=== PATIENT | male | born 1995 | race Caucasian/White ===

== ENCOUNTER 2020-06-10 23:40 | Emergency (ER) | payer SELFPAY ==
[~2020-06-10] VITALS: Ht 170.2 cm; Wt 64.0 kg
[2020-06-11] MEDS ORDERED: FLUORESCEIN SODIUM 1MG/STRIP RIGHTEYE ONE (00:45)
[2020-06-11] MEDS ORDERED: TETRACAINE 0.5% OPHTH DROPS 4ML RIGHTEYE ONE (00:45)
[2020-06-11] MEDS ORDERED: ERYT1OIN6 RIGHTEYE (01:05)
[2020-06-11 01:39] VITALS: BP 108/62
== END 2020-06-11 01:40 | disposition home or self-care (01) ==
LOC: ER 23:40
DX: T15.01XA Foreign body in cornea, right eye, initial encounter (principal); X58.XXXA Exposure to other specified factors, initial encounter; Y93.89 Activity, other specified; Y92.89 Other specified places as the place of occurrence of the external cause; Y99.8 Other external cause status
CPT/HCPCS: 99283

== ENCOUNTER 2020-11-18 16:38 | Emergency (ER) | payer SELFPAY ==
[~2020-11-18] VITALS: Ht 167.6 cm; Wt 63.0 kg
[~2020-11-18 16:38] MED LIST: ERYT1OIN6 RIGHTEYE
[2020-11-18 16:49] VITALS: BP 116/77
== END 2020-11-18 17:26 | disposition left against medical advice (07) ==
LOC: ER 16:38
DX: Z53.21 Procedure and treatment not carried out due to patient leaving prior to being seen by health care provider (principal)